=== PATIENT | male | born 2000 | race Caucasian/White ===

== ENCOUNTER 2018-09-29 07:25 | Emergency (ER) | payer SELFPAY ==
[~2018-09-29] VITALS: Ht 193 cm; Wt 79.4 kg
[2018-09-29 07:58] LABS: BASO # 0.1 x10^3/uL (0.0-0.2); BASO % 1 % (0-3); EOS # 0.2 x10^3/uL (0.0-0.7); EOS % 3 % (0-3); HEMATOCRIT 52.2 % (39.0-53.0); LYMPH # 2.3 x10^3/uL (1.0-4.8); LYMPH % 30 % (24-48); MEAN CORPUSCULAR HEMOGLOBIN 31 pg (25-35); MEAN CORPUSCULAR HGB CONC 35 g/dL (31-37); MEAN CORPUSCULAR VOLUME 90 fL (79-100); MONO # 0.7 x10^3/uL (0.0-1.1); MONO % 9 % (0-9); NEUT # 4.4 x10^3uL (1.8-7.7); NEUT % 57 % (31-73); PLATELET COUNT 232 x10^3/uL (140-400); RED CELL DISTRIBUTION WIDTH 12.4 % (11.5-14.5); WHITE BLOOD COUNT 7.7 x10^3/uL (4.0-11.0)
[2018-09-29] MEDS: KETOROLAC 15 MG/ML VIAL. IV ONE (07:58)
[2018-09-29 08:04] LABS: AMPHETAMINE/METHAMPHETAMINE NEG (NEG); BARBITURATES NEG (NEG); BENZODIAZEPINES NEG (NEG); CANNABINOIDS POS (NEG); COCAINE NEG (NEG); METHADONE NEG (NEG); OPIATES NEG (NEG); PHENCYCLIDINE NEG (NEG)
[2018-09-29 08:08] LABS: ALBUMIN 4.6 g/dL (3.4-5.0); ALBUMIN/GLOBULIN RATIO 1.5 (1.0-1.7); CALCIUM 9.5 mg/dL (8.5-10.1); CREATININE 1.2 mg/dL (0.7-1.3); POTASSIUM 3.7 mmol/L (3.5-5.1); TOTAL BILIRUBIN 0.6 mg/dL (0.2-1.0); TOTAL PROTEIN 7.7 g/dL (6.4-8.2)
[2018-09-29 08:12] LABS: AMORPHOUS SEDIMENT,UR PRESENT /HPF; BACTERIA,URINE 0 /HPF (0-FEW); BILIRUBIN,URINE NEG (NEG); CLARITY,URINE HAZY; COLOR,URINE YELLOW; GLUCOSE,URINE NEG (NEG); NITRITE,URINE NEG (NEG); RBC,URINE 0 /HPF (0-2); UROBILINOGEN,URINE 0.2 mg/dL (0.2 mg/dL); WBC,URINE RARE /HPF (0-4)
[2018-09-29] MEDS: IOHEXOL 300 MG/ML 75 ML VIAL. IV ONE (08:37)
--- NOTE | 2018-09-29 09:05 | RAD ---
EXAM: CT Abdomen and Pelvis with IV contrast CLINICAL HISTORY: Left lower quadrant pain. COMPARISON: none TECHNIQUE: Helical CT of the abdomen and pelvis was performed following the administration of intravenous contrast. Axial, coronal and sagittal reformatted images were generated. PQRS compliance statement - One or more of the following individualized dose reduction techniques were utilized for this study: 1. Automated exposure control 2. Adjustment of the mA and/or kV according to patient size 3. Use of iterative reconstruction technique FINDINGS: Lower chest: Lung bases are clear. Linear opacities in the lower lobes likely scarring/atelectasis. Abdomen and Pelvis: No focal liver lesion. Gallbladder is normal. No biliary ductal dilatation. Pancreas is unremarkable. Adrenal glands are normal. Spleen is normal in appearance. Symmetric nephrograms. The right kidney is diffusely atrophic with hydronephrosis. Subcentimeter hypodense left upper pole renal lesion is too small to accurately characterize. Moderate colonic stool content is seen throughout the colon. There is diffuse mesenteric infiltration and thickening within the inferior pelvis. This is nonspecific but may be seen with inflammatory bowel disease. No definite small or large bowel wall thickening. Diffuse prominence of the mesenteric lymph nodes are seen particularly in the right lower quadrant. No lymphadenopathy by size criteria in the abdomen or pelvis. Diffuse bladder wall thickening with associated fat infiltration, possibly cystitis. 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 No abdominal or pelvic ascites. Bones: Osseous structures are grossly unremarkable. IMPRESSION: 1. Diffuse bladder wall thickening with associated fat infiltration likely represent cystitis. 2. Prominence of the mesenteric vessels is seen particularly in the lower abdomen/pelvis, although no abnormal bowel wall thickening is seen, these findings may be seen with inflammatory bowel disease. 3. Diffuse atrophy of the right kidney with mild right hydronephrosis, of uncertain etiology, chronic in appearance. 4. 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 Electronically signed by: Sean Naidu MD (09/29/2018 9:03 AM) [id number]
[2018-09-29] MEDS ORDERED: DICY20TA3 PO (09:29)
[2018-09-29] MEDS ORDERED: AMOX1TAB61 PO (09:29)
--- NOTE | 2018-09-29 09:36 | PHYS DOC ---
Past History Past Medical History: No Pertinent History Past Surgical History: Other Alcohol Use: None Drug Use: None Adult General Chief Complaint Chief Complaint: ABDOMINAL PAIN HPI HPI Patient is a 17-year-old male with 3 weeks of left lower quadrant abdominal pain associated with nausea occasional vomiting and 3-4 episodes a day of nonbloody diarrhea symptoms are moderate slowly worsening with time Review of Systems Review of Systems Constitutional: Denies fever or chills [] Eyes: Denies change in visual acuity, redness, or eye pain [] HENT: Denies nasal congestion or sore throat [] Respiratory: Denies cough or shortness of breath [] Musculoskeletal: Denies back pain or joint pain [] Integument: Denies rash or skin lesions [] Neurologic: Denies headache, focal weakness or sensory changes [] Endocrine: Denies polyuria or polydipsia [] All other systems were reviewed and found to be within normal limits, except as documented in this note. Current Medications Current Medications Current Medications Medications (Trade) Dose Ordered Sig/Ramirez Start Time Stop Time Status Last Admin Dose Admin Iohexol (Omnipaque 300 Mg/ml) 75 ml 1X ONCE 09/29/18 08:30 09/29/18 08:31 DC 09/29/18 08:37 75 ML Ketorolac Tromethamine (Toradol 15mg Vial) 15 mg 1X ONCE 09/29/18 08:00 09/29/18 08:01 DC 09/29/18 07:58 15 MG Allergies Allergies Allergies Coded Allergies Type Severity Reaction Last Updated Verified No Known Drug Allergies 09/29/18 No Physical Exam Physical Exam Constitutional: Well developed, well nourished, no acute distress, non-toxic appearance. [] HENT: Normocephalic, atraumatic, bilateral external ears normal, oropharynx moist, no oral exudates, nose normal. [] Eyes: PERRLA, EOMI, conjunctiva normal, no discharge. [] Neck: Normal range of motion, no tenderness, supple, no stridor. [] Pulmonary: Normal respiratory effort no increased work of breathing no obvious chest wall trauma Abdomen: Bowel sounds normal, soft, left lower quadrant tenderness, no masses, no pulsatile masses. [] Skin: Warm, dry, no erythema, no rash. [] Back: No tenderness, no CVA tenderness. [] Extremities: No tenderness, no cyanosis, no clubbing, ROM intact, no edema. [] Neurologic: Alert and oriented X 3, normal motor function, normal sensory function, no focal deficits noted. [] Psychologic: Affect normal, judgement normal, mood normal. [] Current Patient Data Vital Signs Vital Signs Date Time Temp Pulse Resp B/P (MAP) Pulse Ox O2 Delivery O2 Flow Rate FiO2 09/29/18 07:35 97.6 62 18 100 Room Air Lab Results Laboratory Tests Test 09/29/18 07:40 09/29/18 07:45 Urine Collection Type Unknown Urine Color Yellow Urine Clarity Hazy Urine pH 7.0 Urine Specific [place] 1.020 Urine Protein Neg (NEG-TRACE) Urine Glucose (UA) Neg mg/dL (NEG) Urine Ketones (Stick) Neg mg/dL (NEG) Urine Blood Neg (NEG) Urine Nitrite Neg (NEG) Urine Bilirubin Neg (NEG) Urine Urobilinogen Dipstick 0.2 mg/dL (0.2 mg/dL) Urine Leukocyte Esterase Neg (NEG) Urine RBC 0 /HPF (0-2) Urine WBC Rare /HPF (0-4) Urine Squamous Epithelial Cells None /LPF Urine Amorphous Sediment Present /HPF Urine Bacteria 0 /HPF (0-FEW) Urine Mucus Slight /LPF Urine Opiates Screen Neg (NEG) Urine Methadone Screen Neg (NEG) Urine Barbiturates Neg (NEG) Urine Phencyclidine Screen Neg (NEG) Urine Amphetamine/Methamphetamine Neg (NEG) Urine Benzodiazepines Screen Neg (NEG) Urine Cocaine Screen Neg (NEG) Urine Cannabinoids Screen Pos (NEG) Urine Ethyl Alcohol Neg (NEG) White Blood Count 7.7 x10^3/uL (4.0-11.0) Red Blood Count 5.80 x10^6/uL (4.30-5.70) H Hemoglobin 18.0 g/dL (13.0-17.5) H Hematocrit 52.2 % (39.0-53.0) Mean Corpuscular Volume 90 fL (79-100) Mean Corpuscular Hemoglobin 31 pg (25-35) Mean Corpuscular Hemoglobin Concent 35 g/dL (31-37) Red Cell Distribution Width 12.4 % (11.5-14.5) Platelet Count 232 x10^3/uL (140-400) Neutrophils (%) (Auto) 57 % (31-73) Lymphocytes (%) (Auto) 30 % (24-48) Monocytes (%) (Auto) 9 % (0-9) Eosinophils (%) (Auto) 3 % (0-3) Basophils (%) (Auto) 1 % (0-3) Neutrophils # (Auto) 4.4 x10^3uL (1.8-7.7) Lymphocytes # (Auto) 2.3 x10^3/uL (1.0-4.8) Monocytes # (Auto) 0.7 x10^3/uL (0.0-1.1) Eosinophils # (Auto) 0.2 x10^3/uL (0.0-0.7) Basophils # (Auto) 0.1 x10^3/uL (0.0-0.2) Sodium Level 141 mmol/L (136-145) Potassium Level 3.7 mmol/L (3.5-5.1) Chloride Level 103 mmol/L (98-107) Carbon Dioxide Level 28 mmol/L (21-32) Anion Gap 10 (6-14) Blood Urea Nitrogen 12 mg/dL (8-26) Creatinine 1.2 mg/dL (0.7-1.3) Estimated GFR (Cockcroft-Gault) 78.0 BUN/Creatinine Ratio 10 (6-20) Glucose Level 99 mg/dL (70-99) Calcium Level 9.5 mg/dL (8.5-10.1) Total Bilirubin 0.6 mg/dL (0.2-1.0) Aspartate Amino Transferase (AST) 13 U/L (15-37) L Alanine Aminotransferase (ALT) 12 U/L (16-63) L Alkaline Phosphatase 108 U/L (46-116) Total Protein 7.7 g/dL (6.4-8.2) Albumin 4.6 g/dL (3.4-5.0) Albumin/Globulin Ratio 1.5 (1.0-1.7) Lipase 102 U/L (73-393) EKG EKG [] Radiology/Procedures Radiology/Procedures [] Impressions: IMPRESSION: 1. Diffuse bladder wall thickening with associated fat infiltration likely represent cystitis. 2. Prominence of the mesenteric vessels is seen particularly in the lower abdomen/pelvis, although no abnormal bowel wall thickening is seen, these findings may be seen with inflammatory bowel disease. Course & Med Decision Making Course & Med Decision Making Pertinent Labs and Imaging studies reviewed. (See chart for details) []Left lower quadrant pain for 3 weeks and a 17-year-old otherwise healthy male noted the CT scan as noted above. IBD is on the differential Augmentin prescription was provided recommended follow-up and he has a primary provider in [facility] and I told him to follow up with that person as soon as possible I think he should've GI consultation within a couple of weeks. Noted the finding of possible cystitis. The urinalysis was negative Augmentin will be given that should cover any potential UTI in this otherwise healthy male. Dragon Disclaimer Dragon Disclaimer This electronic medical record was generated, in whole or in part, using a voice recognition dictation system. Departure Departure: Impression: Primary Impression: Abdominal pain Disposition: HOME, SELF-CARE Condition: STABLE Patient Instructions: Abdominal Pain (Nonspecific) Additional Instructions: SEE BELOW FOR IMPRESSION OF YOUR CT SCAN. TAKE ANTIBIOTICS, YOU SHOULD BE SEEN B Y A GI DOCTOR WITHIN A COPULE OF WEEKS IMPRESSION: 1. Diffuse bladder wall thickening with associated fat infiltration likely represent cystitis. 2. Prominence of the mesenteric vessels is seen particularly in the lower abdomen/pelvis, although no abnormal bowel wall thickening is seen, these findings may be seen with inflammatory bowel disease. Scripts Dicyclomine Hcl (DICYCLOMINE HCL) 20 Mg Tablet 1 TAB PO TID PRN for PAIN, #30 TAB 0 Refills Prov: LEAH ODONNELL MD 09/29/18 Amoxicillin/Potassium Clav (AUGMENTIN 875-125 TABLET) 1 Each Tablet 1 TAB PO BID for CYSTITIS, #14 TAB Prov: LEAH ODONNELL MD 09/29/18 LEAH ODONNELL MD September 29, 2018 09:36
[2018-09-29 09:40] VITALS: BP 132/58
== END 2018-09-29 09:41 | disposition home or self-care (01) ==
LOC: ER 07:25
DX: R10.32 Left lower quadrant pain (principal); R11.2 Nausea with vomiting, unspecified; R19.7 Diarrhea, unspecified
CPT/HCPCS: 36415; 74177; 80053; 80307; 81001; 83690; 85025; 96374; 99285; J1885; Q9967